=== PATIENT | female | born 1945 | race American Indian/Alaskan Native ===

== ENCOUNTER 2021-01-23 14:05 | Outpatient (CLI) | payer MEDICARE ==
--- NOTE | 2021-01-23 15:49 | Mammography Report ---
DEXA BONE DENSITY SCAN INDICATION / CLINICAL INFORMATION: BENIGN NEOPLASM OF RIGHT BREAST. 75 years Female COMPARISON: None available. LUMBAR SPINE, L1-L4: - Bone mineral density (BMD) = 0.954 g/cm2. - T-score = -1.8 - Z-score = 0.8 Change (%) since most recent prior (if available): None available. LEFT HIP, NECK : - Bone mineral density (BMD) = 0.697 g/cm2. - T-score = -1.8 - Z-score = -0.3 Change (%) since most recent prior (if available): None available. IMPRESSION: 1. WHO Classification: Osteopenia. Fracture Risk: Increased. Note: 10-Year Fracture Risk (FRAX) not reported. This DEXA unit lacks FRAX functionality. BMD Reporting Guidelines (ISCD, 2015) BMD Reporting in Postmenopausal Women and in Men Age 50 and Older - T-scores are preferred. - The WHO densitometric classification is applicable. BMD Reporting in Females Prior to Menopause and in Males Younger Than Age 50 - Z-scores, not T-scores, are preferred. This is particularly important in children. - A Z-score of -2.0 or lower is defined as below the expected range for age, and a Z-score above -2.0 is within the expected range for age. - Osteoporosis cannot be diagnosed in men under age 50 on the basis of BMD alone. - The WHO diagnostic criteria may be applied to women in the menopausal transition. http://www.iscd.org/official-positions/4953-vqxa-yulihzxp-positions-adult/ Signer Name: Fernando Higginbotham MD Signed: 01/23/2021 3:44 PM Workstation Name: [email or web address]
== END 2021-01-23 14:06 | disposition home or self-care (01) ==
LOC: SPVWC 14:05
PROVIDERS: ATTEND Surgery
DX: M85.88 Other specified disorders of bone density and structure, other site (principal); D24.1 Benign neoplasm of right breast; N64.4 Mastodynia; Z80.41 Family history of malignant neoplasm of ovary
CPT/HCPCS: 77080

== ENCOUNTER 2021-02-06 09:30 | Outpatient (CLI) | payer MEDICARE ==
--- NOTE | 2021-02-08 10:32 | Magnetic Resonance Report ---
MRI BREAST BILATERAL WITH AND WITHOUT CONTRAST, 02/06/2021 CLINICAL INFORMATION / INDICATION: Benign neoplasm of right breast. TECHNIQUE: Axial T1 and T2-weighted fat sat images were obtained precontrast. Gadolinium-based contra st was injected intravenously and serial axial T1 weighted images with fat saturation were obtained. 3-D MIP projections, kinetic analysis, and subtraction imaging were utilized to evaluate. A dedicated 8-channel breast coil was used for image acquisition. COMPARISON: Screening mammogram from 11/08/2012. FINDINGS: BREAST DENSITY: Heterogeneously dense. BACKGROUND ENHANCEMENT: Low level background enhancement within both breasts. RIGHT BREAST: No dominant mass or suspicious area of enhancement in the right breast. LEFT BREAST: No dominant mass or suspicious area of enhancement in the left breast. AXILLAE: Nonspecific mildly enlarged left axillary nodes are seen measuring up to 1.3 cm in short axi s dimension. No right axillary adenopathy. ADDITIONAL FINDINGS: Limited imaging of the thorax and upper abdomen demonstrates no focal abnormalit y. IMPRESSION: 1. No MRI evidence of malignancy in either breast. 2. Nonspecific mild left axillary adenopathy, which could be reactive to a recent or ongoing infectio us/inflammatory process or secondary to recent Covid 19 vaccination. Lymphadenopathy secondary to non breast malignancy cannot be entirely excluded, but is felt to be less likely. Please correlate with the clinical findings. Follow up recommendation: Clinical exam BI-RADS Category 2: Benign. Signer Name: Julio Pang MD Signed: 02/08/2021 10:27 AM Workstation Name: [id number]
== END 2021-02-06 09:31 | disposition home or self-care (01) ==
LOC: SPVIMAG 09:30
PROVIDERS: ATTEND Surgery
DX: N64.4 Mastodynia (principal); D24.1 Benign neoplasm of right breast; Z80.41 Family history of malignant neoplasm of ovary
CPT/HCPCS: A9575; C8908; 77049

== ENCOUNTER 2021-04-19 10:18 | Outpatient (CLI) | payer MEDICARE ==
--- NOTE | 2021-04-19 11:31 | Mammography Report ---
DIGITAL SCREENING MAMMOGRAM WITH CAD, 04/19/2021 CLINICAL INFORMATION / INDICATION: Routine screening mammography. SCREENING MAMMO TECHNIQUE: Digital bilateral 2D mammography was obtained in the craniocaudal and mediolateral obliqu e projections. This examination was interpreted with the benefit of Computer-Aided Detection analysis . COMPARISON: 11/08/2012 FINDINGS: Breast Density: The breasts are heterogeneously dense, which may obscure small masses. No dominant mass, suspicious calcifications, or architectural distortion in either breast. Biopsy marking clip is noted on the right IMPRESSION: No mammographic evidence of malignancy. Follow up recommendation: Routine yearly BI-RADS Category 1: Negative. A "normal" or negative report should not discourage follow up or biopsy of a clinically significant f inding. A written summary of these findings will be mailed to the patient. The patient will be entered into a mammography reporting system which will generate a reminder letter for the patient's next appointmen t at the appropriate interval. The [employer] recommends yearly mammograms starting at age 40 and continuing as l flako as a woman is in good health. Breast MRI is recommended for women with an approximate 20-25% or greater lifetime risk of breast cancer, including women with a strong family history of breast or ova chencho cancer or who have been treated for Hodgkin's disease. Signer Name: Jaspreet Urias MD Signed: 04/19/2021 11:27 AM Workstation Name: [email or web address]
== END 2021-04-19 10:19 | disposition home or self-care (01) ==
LOC: SPVWC 10:18
PROVIDERS: ATTEND Surgery
DX: Z12.31 Encounter for screening mammogram for malignant neoplasm of breast (principal)
CPT/HCPCS: 77067

== ENCOUNTER 2021-07-10 09:01 | Outpatient (CLI) | payer MEDICARE ==
--- NOTE | 2021-07-10 10:18 | Ultrasound Report ---
ULTRASOUND BREAST BILATERAL COMPLETE, 07/10/2021 CLINICAL INFORMATION / INDICATION: Patient presents for evaluation of diffuse bilateral breast pain. TECHNIQUE: Complete sonographic evaluation of all 4 quadrants and retroareolar region was performed. COMPARISON: Prior mammogram 04/19/2021 and breast MRI 02/06/2021 FINDINGS: Right breast: Complete ultrasound of the right breast reveals normal fibroglandular tissue. No suspic ious cystic or solid lesion identified. Left breast: Complete ultrasound was performed of the left breast. There is an incidental oval circum scribed hypoechoic mass in the 4:00 position located 7 cm from the nipple measuring up to 8 x 3 x 8 m m. The nodule is parallel. No internal vascularity is demonstrated. No additional suspicious cystic o r solid lesion identified in the left breast. Incidental note is made of a mildly enlarged left axill anushka lymph node with cortical thickness measuring up to 5 mm. This appears similar to prior breast MRI performed in January 2021, allowing for differences in technique. IMPRESSION: 1. There is a mildly enlarged left axillary lymph node. Because this has persisted from prior breast MRI performed in January 2021, this is considered low suspicion for malignancy, and an ultrasound-guide d biopsy is recommended. 2. An incidental oval circumscribed hypoechoic mass in the 4:00 left breast is considered probably be nign. Recommend left breast ultrasound in 6 months to ensure stability. 3. Otherwise, no abnormality to account for diffuse bilateral breast pain, therefore clinical correla tion is recommended. Follow up recommendation: Biopsy BI-RADS Category 4: Suspicious for Malignancy. A normal or "negative" report should not preclude biopsy or follow-up of a clinically suspicious find ing. Signer Name: Lacey Ponce MD Signed: 07/10/2021 10:14 AM Workstation Name: [email or web address]
== END 2021-07-10 09:02 | disposition home or self-care (01) ==
LOC: SPVWC 09:01
PROVIDERS: ATTEND Surgery
DX: N63.23 Unspecified lump in the left breast, lower outer quadrant (principal); N64.4 Mastodynia; R59.0 Localized enlarged lymph nodes

== ENCOUNTER 2021-07-30 13:42 | Outpatient (CLI) | payer MEDICARE ==
--- NOTE | 2021-07-30 15:36 | Ultrasound Report ---
Procedure: Ultrasound-guided left axillary biopsy, 07/30/2021 Clinical information/indication: The patient underwent breast MRI in January 2021 which demonstrated a few mildly prominent left axillary lymph nodes. The patient does have a history of COVID vaccination in January 2021. The patient presents for additional evaluation and ultrasound-guided biopsy. Comparison: Breast MRI, 02/06/2021. Screening mammogram, 04/19/2021 Procedure: The benefits, indications and risks were discussed with the patient including but not limi silvia to bleeding, infection, hematoma formation, and inadequate tissue sampling. The patient agreed to proceed with both verbal and written consent. A timeout procedure was performed using 2 patient iden tifiers. The left axilla was prepped and draped in the usual sterile fashion. Lidocaine 1% with and without ep inephrine were used for local anesthesia. Under direct ultrasound guidance, a total of 4 core samples were obtained of the mildly prominent left axillary lymph node. This lymph node corresponds to the l ymph node seen on the breast MRI. A biopsy marker was then placed. Biopsy device was removed and hem ostasis achieved with manual pressure. A sterile dressing was applied to the skin. The patient tolerated the procedure without difficulty. No complications were encountered. Postbiopsy instructions were discussed with the patient and given in writing. The core specimens were placed in both preservative and fresh saline for flow cytometry evaluation. IMPRESSION: 1. Technically successful left axillary lymph node biopsy. Biopsy results are pending and will be rep orted in an addendum. Signer Name: Obdulia Garcia MD Signed: 07/30/2021 3:32 PM Workstation Name: [id number]
== END 2021-07-30 13:43 | disposition home or self-care (01) ==
LOC: SPVWC 13:42
PROVIDERS: ATTEND Surgery
DX: R92.2 Inconclusive mammogram (principal); I10 Essential (primary) hypertension; M19.90 Unspecified osteoarthritis, unspecified site; Z79.899 Other long term (current) drug therapy
CPT/HCPCS: 38505; 76942; 88184; 88185; 88305; 88342

== ENCOUNTER 2022-01-23 09:43 | Outpatient (CLI) | payer MEDICARE ==
--- NOTE | 2022-01-23 12:56 | Ultrasound Report ---
ULTRASOUND BREAST LEFT LIMITED, 01/23/2022 CLINICAL INFORMATION / INDICATION: D05.01, R92.8. Follow up left axillary adenopathy. Patient had bio psy of left axillary lymph node in July 2021. Pathology described abnormal B-cell population, bu t overall is nonspecific. TECHNIQUE: Targeted ultrasound evaluation was performed of the area of interest. COMPARISON: Prior axillary ultrasound performed on 07/10/2021 and prior axillary node biopsy performed on 07/30/2021 FINDINGS: Sonographic evaluation of the lymph nodes in the left axilla remain abnormal. Several lymph nodes dem onstrate cortical thickening in the range of 5-7 mm. There are a few small lymph nodes in the axilla without a demonstrable fatty hilum. Overall, the appearance of the lymph nodes in the left axilla has not changed significantly since 06/23 exam. Overall appearance remains suspicious for neoplastic process. IMPRESSION: Left axillary adenopathy persists not appreciably changed since prior exam of 07/10/2021. Findings remain suspicious for possible neoplastic process. Surgical excision of a left axillary lymp h node is suggested, if clinically warranted. Additionally, a PET/CT exam could also be performed to evaluate for other potential sites of adenopathy. Follow up recommendation: Surgical consult BI-RADS Category 4: SUSPICIOUS FOR MALIGNANCY. A normal or "negative" report should not preclude biopsy or follow-up of a clinically suspicious find ing. Signer Name: Filomena Melendez MD Signed: 01/23/2022 12:52 PM Workstation Name: [email or web address]
== END 2022-01-23 09:44 | disposition home or self-care (01) ==
LOC: US 09:43
PROVIDERS: ATTEND Surgery
DX: R92.8 Other abnormal and inconclusive findings on diagnostic imaging of breast (principal); D05.01 Lobular carcinoma in situ of right breast; Z68.25 Body mass index [BMI] 25.0-25.9, adult